=== PATIENT | female | born 2000 | race African-American/Black ===

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

== ENCOUNTER 2020-09-24 22:35 | Emergency (ER) | payer MEDICAID ==
[~2020-09-24] VITALS: Ht 165.1 cm; Wt 104.3 kg
[~2020-09-24 22:35] MED LIST changes: +ROBAXIN-750750 MG PO
--- NOTE | 2020-09-24 22:45 | NUR ---
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 Patient denies injury/ trauma. Patient is AAOx4 and ambulatory. VSS as documented. ERMD at bedside
[2020-09-24 23:15] VITALS: BP 134/84
[2020-09-24] MEDS ORDERED: NEURONTIN100 MG ORAL (23:18)
[2020-09-24] MEDS ORDERED: PREDNISONE20 MG ORAL (23:18)
--- NOTE | 2020-09-24 23:19 | Emergency Room Report ---
History of Present Illness General Chief Complaint: General Complaint Source: Patient Present Illness HPI Is a 20-year-old female who is is left-hand dominant. She presents with 2 complaints. The first complaint is allergic reaction. She put some cocoa butter lotion on her left hand. Afterward he started burning and has some bumps on it. She washed it off and is better now. This occurred just prior to a rrival. No respiratory issue with it. Denies any other complaint. Her second complaint is that her left hand is numb and contracted. This been ongoing problem for 2 to 3 weeks. 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 No trauma. No pain. Has not seen anybody for this. Allergies: Coded Allergies: No Known Allergies (Unverified , 02/13/18) COVID-19 Screening Contact w/high risk pt: No Experienced COVID-19 symptoms?: No COVID-19 Testing performed ENVIRONMENTAL SCIENCE PROFESSOR: No Patient History Past Medical History: see triage record, old chart reviewed Past Surgical History: none Pertinent Family History: none Social History: Denies: smoking Now: No Immunizations: other Reviewed Nursing Documentation: PMH: Agreed; PSxH: Agreed Nursing Documentation-PMH Hx Asthma: Yes Review of Systems Eye: Denies: eye pain, blurred vision ENT: Denies: ear pain, nose congestion, throat swelling Respiratory: Denies: cough, shortness of breath Cardiovascular: Denies: chest pain, palpitations Gastrointestinal: Denies: abdominal pain, diarrhea, nausea, vomiting Musculoskeletal: Denies: back pain, joint pain Skin: Denies: rash Neurological: Denies: headache, numbness Endocrine: Denies: increased thirst, increased urine Hematologic/Lymphatic: Denies: easy bruising All Other Systems: negative except mentioned in HPI Physical Exam Vital Signs Date Time Temp Pulse Resp B/P (MAP) Pulse Ox O2 Delivery O2 Flow Rate FiO2 09/24/20 22:44 98.4 85 20 134/84 (101) 98 Vitals normal Sp02 EP Interpretation: reviewed, normal General Appearance: well appearing, no apparent distress, alert Head: normocephalic, atraumatic Eyes: bilateral eye PERRL, bilateral eye EOMI ENT: hearing grossly normal, normal pharynx Neck: full range of motion, supple, no meningismus Respiratory: chest non-tender, lungs clear, normal breath sounds Cardiovascular #1: regular rate, rhythm, no murmur Gastrointestinal: normal bowel sounds, non tender, no mass, no organomegaly, no bruit, non-distended Musculoskeletal: back normal, normal range of motion, gait/station normal, other - Left hand: On the dorsum of the hand, I see no urticaria or rash. She has decreased sensation to the palm of the hand. Her thumb is functioning fine. Her index through pinky fingers are slightly contracted. Normal warmth. Radial pulse normal. No tenderness over the median nerve. Psychiatric: mood/affect normal Medical Decision Making Diagnostic Impression: Primary Impression: Allergic reaction Qualified Codes: T78.40XA - Allergy, unspecified, initial encounter Additional Impression: Neuropathy ER Course Patient with a local allergic reaction. No respiratory issue. She also has neuropathy of her left hand. This may be a problem from repetitive motion. There is no evidence any fracture dislocation. She will need referral to see neurologist for possible EMG study. Last Vital Signs Date Time Temp Pulse Resp B/P (MAP) Pulse Ox O2 Delivery O2 Flow Rate FiO2 09/24/20 22:44 98.4 85 20 134/84 (101) 98 Status: improved Disposition: HOME, SELF-CARE Condition: Stable Scripts Gabapentin* (NEURONTIN*) 100 Mg Capsule 100 MG ORAL THREE TIMES A DAY, #30 CAP 0 Refills Prov: Nazario Guallpa MD 09/24/20 Prednisone* (PREDNISONE*) 20 Mg Tablet 40 MG ORAL DAILY, #10 TAB Prov: Nazario Guallpa MD 09/24/20 Referrals: [facility],REFERRING (PCP) Additional Instructions: Follow-up with your doctor in 7 days. You will need referral to see a neurologist for nerve conduction study. Return if symptoms worsen. Nazario Guallpa MD Sep 24, 2020 23:19
--- NOTE | 2020-09-24 23:45 | NUR ---
ER DISCHARGE NOTE: Patient is cleared to be discharged per ERMD, pt is aox4, on room air, with stable vital signs. pt was given dc and prescription instructions, pt was able to verbalize understanding, pt id band removed. pt is able to ambulate with steady gait. pt took all belongings.
[2020-09-24 23:47] VITALS: BP 134/84
== END 2020-09-24 23:52 | disposition home or self-care (01) ==
LOC: EMR 23:12
DX: T78.40XA Allergy, unspecified, initial encounter (principal); G62.9 Polyneuropathy, unspecified; X58.XXXA Exposure to other specified factors, initial encounter; Y92.9 Unspecified place or not applicable
CPT/HCPCS: 99282